=== PATIENT | male | born 1985 | race Caucasian/White ===

== ENCOUNTER 2017-06-30 10:42 | Outpatient (RCR) | payer OTHER | END 2017-07-16 10:06 | LOC: WSOH 10:42 | DX: M25.521 Pain in right elbow (principal) ==

== ENCOUNTER 2017-09-10 14:30 | Outpatient (RCR) | payer OTHER | END 2017-10-07 08:03 | disposition home or self-care (01) | LOC: WSOT 14:30 | DX: M77.01 Medial epicondylitis, right elbow (principal); Z98.890 Other specified postprocedural states | CPT/HCPCS: 24091; A6549 ==